=== PATIENT | male | born 1985 | race Caucasian/White ===

== ENCOUNTER 2019-01-12 16:25 | Emergency (ER) | payer MEDICAID, OTHER ==
[~2019-01-12] VITALS: Ht 170.2 cm; Wt 68.2 kg
[2019-01-12 16:25] VITALS: BP 134/94
== END 2019-01-12 17:45 | disposition home or self-care (01) ==
LOC: EMS 16:28
DX: K64.9 Unspecified hemorrhoids (principal); R03.0 Elevated blood-pressure reading, without diagnosis of hypertension